=== PATIENT | female | born 1975 | race Caucasian/White ===

== ENCOUNTER → 2017-09-17 | Outpatient (CLI) | payer OTHER ==
[~2017-09-17] MED LIST: ATIVAN1 MG PO; MOTRIN800 MG PO
== END | disposition home or self-care (01) ==
LOC: MAMMO 09:01
DX: N60.01 Solitary cyst of right breast (principal)

== ENCOUNTER → 2019-06-22 | Outpatient (CLI) | payer OTHER ==
[2019-06-23 06:10] LABS: DHEA SULFATE 114.7 ug/dL (41.2-243.7); LUTEINIZING HORMONE 004283 3.5 mIU/mL (.); PROLACTIN 004465 15.8 ng/mL (4.8-23.3)
[2019-06-24 02:10] LABS: TESTOSTERONE FREE, (DIRECT) 1.3 pg/mL (0.0-4.2)
== END | disposition home or self-care (01) ==
LOC: LAB 07:59
PROVIDERS: Student in an Organized Health Care Education/Training Program
DX: N92.6 Irregular menstruation, unspecified (principal); N93.9 Abnormal uterine and vaginal bleeding, unspecified